=== PATIENT | female | born 1935 | race Caucasian/White ===

== ENCOUNTER → 2019-04-26 08:10 | Outpatient (BNVA) | payer MEDICARE, SELFPAY | PROVIDERS: Family Provider Family Medicine; PCP Family Medicine; Visit Provider Anesthesiology | DX: G89.29 Other chronic pain (principal); M54.9 Dorsalgia, unspecified; M25.552 Pain in left hip; M70.60 Trochanteric bursitis, unspecified hip; M54.81 Occipital neuralgia; R51 Headache; Z79.891 Long term (current) use of opiate analgesic | CPT/HCPCS: 64405; J1030; J3490 ==

== ENCOUNTER → 2019-05-22 14:07 | Outpatient (BNVA) | payer MEDICARE, SELFPAY | PROVIDERS: Family Provider Family Medicine; PCP Family Medicine; Referring Provider Internal Medicine Rheumatology; Visit Provider Internal Medicine Rheumatology | DX: M05.9 Rheumatoid arthritis with rheumatoid factor, unspecified (principal); Z79.899 Other long term (current) drug therapy; Z11.59 Encounter for screening for other viral diseases; L65.9 Nonscarring hair loss, unspecified; Z11.1 Encounter for screening for respiratory tuberculosis | CPT/HCPCS: 99214 ==

== ENCOUNTER 2019-05-23 11:29 | Outpatient (CLI) | payer MEDICARE, SELFPAY ==
--- NOTE | 2019-05-23 11:40 | XR_ITS ---
WS: [id number] LEFT FOOT: 3 VIEW(S) TECHNIQUE: PA, oblique and lateral. HISTORY: rheumatoid arthritis COMPARISON: None available. Prior bunionectomy. Surgical screws are noted at the first metatarsal head and the proximal first pha lanx. Flattening of the second metatarsal head. Proximal metatarsals of the second and third toe are shortened which could be congenital or postinfectious. Bones are osteopenic. No definite erosions are identified. There is more focal osteopenia at the seco nd metatarsal head but this may be related to prior injury. Small calcaneal spur. XR/XR foot LT min 3V* [id number] IMPRESSION: 1. Postsurgical changes of bunionectomy. 2. 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 3. No definite erosions to suggest rheumatoid.
--- NOTE | 2019-05-23 11:40 | XR_ITS ---
WS: [id number] RIGHT HAND: 3 VIEW(S) TECHNIQUE: PA, oblique and lateral. HISTORY: rheumatoid arthritis COMPARISON: None available. No acute fracture or dislocation. Mild interphalangeal joint space narrowing. No ulnar styloid erosion or metacarpal head erosion. XR/XR hand RT min 3V* [id number] IMPRESSION: Osteoarthritis. No metacarpal head erosions.
--- NOTE | 2019-05-23 11:40 | XR_ITS ---
WS: [id number] LEFT HAND: 3 VIEW(S) TECHNIQUE: PA, oblique and lateral. HISTORY: rheumatoid arthritis COMPARISON: None available. Severe narrowing of the carpometacarpal joint and also the articulation between the scaphoid and trap ezium and trapezoid. No erosions appreciated at the metatarsal heads. Mild narrowing of the interphal angeal joints. No ulnar styloid erosion. Chondrocalcinosis at the radiocarpal joint. XR/XR hand LT min 3V* [id number] IMPRESSION: 1. No erosions or subluxations. 2. Chondrocalcinosis at the radiocarpal joint. 3. 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
--- NOTE | 2019-05-23 11:40 | XR_ITS ---
WS: [id number] RIGHT FOOT: 3 VIEW(S) TECHNIQUE: PA, oblique and lateral. HISTORY: rheumatoid arthritis COMPARISON: None available. No acute fracture or dislocation. Hallux valgus deformity first metatarsophalangeal joint with postoperative screw fixation. Possible t iny erosion involving the medial fifth metatarsal head. Mild deformity of the second and third proxim al phalanges as seen on the LEFT foot. Small calcaneal spur. XR/XR foot RT min 3V* [id number] IMPRESSION: 1. Prior bunionectomy. 2. Possible early inflammatory erosion fifth metatarsal head.
== END 2019-05-23 11:30 | disposition home or self-care (01) ==
LOC: RADWPI 11:33
PROVIDERS: Family Provider Family Medicine; PCP Family Medicine; Visit Provider Internal Medicine Rheumatology
DX: M05.9 Rheumatoid arthritis with rheumatoid factor, unspecified (principal); M19.042 Primary osteoarthritis, left hand; M19.041 Primary osteoarthritis, right hand; M11.242 Other chondrocalcinosis, left hand
CPT/HCPCS: 73130; 73630

== ENCOUNTER → 2019-05-31 09:46 | Outpatient (BNVA) | payer MEDICARE, SELFPAY | PROVIDERS: Family Provider Family Medicine; PCP Family Medicine; Visit Provider Nurse Practitioner | DX: R51 Headache (principal); Z79.891 Long term (current) use of opiate analgesic | CPT/HCPCS: 99213 ==

== ENCOUNTER → 2019-08-23 13:59 | Outpatient (BNVA) | payer MEDICARE, SELFPAY | PROVIDERS: Family Provider Family Medicine; PCP Family Medicine; Visit Provider Internal Medicine Rheumatology | DX: M06.09 Rheumatoid arthritis without rheumatoid factor, multiple sites (principal); Z79.899 Other long term (current) drug therapy; L65.9 Nonscarring hair loss, unspecified; N28.9 Disorder of kidney and ureter, unspecified | CPT/HCPCS: 99214 ==

== ENCOUNTER 2019-12-04 10:58 | Outpatient (CLI) | payer MEDICARE, SELFPAY ==
[2019-12-04 11:34] LABS: Basophils # 0.1 10^3/uL (0.0-0.1); Basophils % 0.9 %; Eosinophils # 0.2 10^3/uL (0.0-0.8); Eosinophils % 2.2 %; Hemoglobin 12.1 g/dL (11.5-15.3); Lymphocytes # 1.8 10^3/uL (0.8-4.8); Mean Corpuscular HGB Conc 32.7 g/dL (30.0-36.0); Mean Corpuscular Hemoglobin 30.5 pg (28.0-34.0); Mean Corpuscular Volume 93.2 fL (81-99); Mean Platelet Volume 10.8 fL (7.4-10.4); Monocytes # 0.7 10^3/uL (0.2-0.9); Monocytes % 8.7 %; Neutrophils # 4.79 10^3/uL (1.8-7.7); Neutrophils % 63.1 %; Nucleated Red Blood Cells % 0 %; Platelet Count 284 10^3/cmm (130-400); Red Blood Count 3.97 10^6/uL (4.1-5.3); Red Cell Distribution Width 15.1 % (12.1-15.1); White Blood Count 7.6 10^3/uL (4.0-10.0)
[2019-12-04 12:16] LABS: 25 Hydroxy Vitamin D 52 ng/mL (30-100); Albumin Level 4.4 g/dL (3.5-5.2); Anion Gap 16.3 (5-19); Blood Urea Nitrogen 28 mg/dL (8-23); Calcium 9.1 mg/dL (8.5-10.5); Carbon Dioxide 25 mmol/L (22-29); Chloride 102 mmol/L (98-107); Glucose 100 mg/dL (65-115); Phosphorus 3.6 mg/dL (2.5-4.5); Potassium 4.3 mmol/L (3.5-5.1); Sodium 139 mmol/L (136-145)
[2019-12-04 12:23] LABS: Creatinine Urine, Random 41 mg/dL (28-217)
[2019-12-04 12:24] LABS: Microalbum Creatinine Ratio Ur 24 mg/dL (0-20); Microalbumin Random Urine 1 ug/dL (0-20)
[2019-12-04 13:02] LABS: Calcium 9.4 mg/dL (8.5-10.5); Parathyroid Hormone 52.7 pg/mL (15-65)
[2019-12-04 13:50] LABS: Bilirubin Urine Neg (NEGATIVE); Blood Urine Neg (Negative); Glucose Urine UA Norm (Normal); Ketones Urine Negative (Negative); Leukocyte Esterase Urine Negative (Negative); Nitrate Urine Negative (Negative); Protein Urine Neg (Negative); Specific Gravity, Urine 1.015 (1.005-1.030); Urine Appearance Clear (CLEAR); Urine Color Yellow (Yellow); Urobilinogen Urine Norm (Negative); pH Urine 6 (5-7)
[2019-12-04 13:51] LABS: Add Urine Culture? No
== END 2019-12-04 10:59 | disposition home or self-care (01) ==
LOC: LAB 11:04
PROVIDERS: PCP Family Medicine; Visit Provider Family Medicine
DX: N18.3 Chronic kidney disease, stage 3 (moderate) (principal)
CPT/HCPCS: 36415; 80069; 81001; 82044; 82306; 82310; 83970; 85025

== ENCOUNTER → 2019-12-24 13:58 | Outpatient (BNVA) | payer MEDICARE, SELFPAY | PROVIDERS: Family Provider Family Medicine; PCP Family Medicine; Visit Provider Internal Medicine Rheumatology | DX: M15.0 Primary generalized (osteo)arthritis (principal); M54.12 Radiculopathy, cervical region | CPT/HCPCS: 99213 ==